=== PATIENT | female | born 1965 | race Caucasian/White ===

== ENCOUNTER 2025-03-28 06:59 | Inpatient (IN) | payer OTHER ==
[~2025-03-28] VITALS: Ht 157.5 cm; Wt 57.2 kg
[2025-03-28 07:02] VITALS: O2SAT 98
[2025-03-28 07:44] LABS: BASOPHILS % 0.8 % (0.0-2.0); EOSINOPHILS % 1.1 % (0.0-5.0); HEMATOCRIT. 37.3 % (36.0-48.0); HEMOGLOBIN. 12.5 g/dL (12.0-16.0); LYMPHOCYTES % 15.1 % (20.0-50.0); MEAN PLATELET VOLUME 8.2 fl (7.4-10.4); MONOCYTES % 5.0 % (2.0-8.0); NEUTROPHILS % 78.0 % (40.0-76.0); PLATELET 236 x1000/uL (130-400); RED BLOOD CELL COUNT 4.33 mill/uL (4.2-5.4); RED CELL DISTRIBUTION WIDTH 13.1 % (11.6-14.6)
[2025-03-28 07:55] LABS: CREATININE 0.8 mg/dL (0.6-1.0); UREA NITROGEN BLOOD 16 mg/dL (9-23)
[2025-03-28] MEDS: KETOROLAC 15MG/ML VIAL IV ONE (07:57)
[2025-03-28] MEDS: MORPHINE SULFATE 4 MG/ML INJ (FOR IV/IM USE) IV ONE ×2 (07:57→10:01)
[2025-03-28] MEDS: METHOCARBAMOL 500MG TABLET PO ONE (07:57)
[2025-03-28] MEDS ORDERED: CLONIDINE 0.1MG TABLET PO PRN (11:45)
[2025-03-28] MEDS: MULTIVITAMINS,THER W-MINERALS TABLET PO SCH (12:17)
[2025-03-28] MEDS: LIDOCAINE 5% PATCH TOP SCH (12:17)
[2025-03-28] MEDS: HYDROMORPHONE HCL/PF 2MG/ML INJ IV PRN (14:49)
[2025-03-28] MEDS: LORAZEPAM 1MG TABLET PO SCH (16:52)
[2025-03-28] MEDS ORDERED: LORAZEPAM 2MG/ML UD SYRINGE IV NR (18:30)
[2025-03-28 20:00] VITALS: BP 128/59; PULSE 86; RESP 20; TEMP 36.5; O2SAT 97
[2025-03-28] MEDS: TRAZODONE HCL 50MG TABLET PO SCH (22:37)
[2025-03-29] VITALS (7 sets, daily range): BP systolic 105–163; BP diastolic 58–85; PULSE 62–80; RESP 16–18; TEMP 36.3–36.9; O2SAT 98–100
[2025-03-29] MEDS ORDERED: NILO150C PO (08:18)
[2025-03-29] MEDS ORDERED: CLOP-31 PO (08:18)
[2025-03-29] MEDS ORDERED: ASPI-1497 PO (08:18)
[2025-03-29] MEDS ORDERED: TRAZ-251 PO (08:18)
[2025-03-29] MEDS ORDERED: SERT50TA MT (08:18)
[2025-03-29] MEDS ORDERED: *PATIENT'S OWN MEDICATION STORAGE XX SCH (08:30)
[2025-03-29] MEDS: ONDANSETRON HCL 4MG/2ML INJ IV PRN (08:35)
[2025-03-29] MEDS ORDERED: NALOXONE HCL 0.4MG/ML VIAL IV PRN (09:00)
[2025-03-29] MEDS: LORAZEPAM 2MG/ML UD SYRINGE IV NR (10:27)
[2025-03-29] MEDS: DEXT 5%/0.9% NACL 1,000 ML IV SCH (15:22)
[2025-03-29] MEDS: DEXAMETHASONE 4MG/ML 1ML VIAL IV SCH (18:25)
[2025-03-30] VITALS: BP 145/76; PULSE 64; RESP 18; TEMP 36.2; O2SAT 99
[2025-03-30 04:00] VITALS: BP 130/65; PULSE 62; RESP 19; TEMP 36.9; O2SAT 100
[2025-03-30 08:00] VITALS: BP 128/66; PULSE 64; RESP 18; TEMP 36.8; O2SAT 100
[2025-03-30 12:00] VITALS: BP 124/78; PULSE 70; RESP 18; TEMP 36.7; O2SAT 99
[2025-03-30 16:00] VITALS: BP 126/82; PULSE 68; RESP 18; TEMP 36.8; O2SAT 99
[2025-03-30 20:00] VITALS: BP 125/74; PULSE 69; RESP 20; TEMP 35.8; O2SAT 99
[2025-03-31] VITALS: BP 143/73; PULSE 72; RESP 20; TEMP 36.3; O2SAT 99
[2025-03-31 04:00] VITALS: BP 112/55; PULSE 56; RESP 20; TEMP 36.2; O2SAT 95
[2025-03-31 08:00] VITALS: BP 127/70; PULSE 81; RESP 17; TEMP 36.9; O2SAT 98
[2025-03-31] MEDS: SERTRALINE HCL 25MG TABLET PO SCH (08:30)
[2025-03-31] MEDS ORDERED: TRAM50TA3 MT (09:18)
[2025-03-31 10:45] VITALS: BP 126/82; PULSE 72; RESP 16; TEMP 97.6
[2025-03-31 12:00] VITALS: BP 135/73; PULSE 64; RESP 18; TEMP 36.5; O2SAT 98
[2025-03-31 13:41] VITALS: BP 135/73; PULSE 64; RESP 18
== END 2025-03-31 14:30 | disposition home or self-care (01) | DRG 552 ==
LOC: ER 06:59 → 6EST 10:30 → EDBEDREQ 10:34 → EDBEDREQTM 10:34
PROVIDERS: ADMIT Student in an Organized Health Care Education/Training Program; ATTEND Student in an Organized Health Care Education/Training Program
DX: M51.16 Intervertebral disc disorders with radiculopathy, lumbar region (principal); F41.9 Anxiety disorder, unspecified; I25.10 Atherosclerotic heart disease of native coronary artery without angina pectoris; M79.605 Pain in left leg; Z85.6 Personal history of leukemia; Z95.5 Presence of coronary angioplasty implant and graft; Z98.1 Arthrodesis status
CPT/HCPCS: 36415; 72148; 80048; 85025; 96374; 96375; 97161; 97165; 99285; J1100; J1171; J1885; J2060; J2270; J2405; J7042